=== PATIENT | female | born 1990 | race African-American/Black ===

== ENCOUNTER 2016-05-06 13:49 | Emergency (ER) | payer MEDICAID, OTHER ==
[~2016-05-06] VITALS: Ht 180.3 cm; Wt 106.1 kg
[2016-05-06 14:12] VITALS: BP 118/64
== END 2016-05-06 15:30 | disposition home or self-care (01) ==
LOC: ER 15:22
DX: M72.2 Plantar fascial fibromatosis (principal); J45.909 Unspecified asthma, uncomplicated
CPT/HCPCS: 99282